=== PATIENT | female | born 1975 | race Caucasian/White ===

== ENCOUNTER 2017-06-22 16:34 | Emergency (ER) | payer OTHER ==
--- NOTE | 2017-06-22 16:54 | CPEKG ---
Heart Rate: 89 RR Interval: 674 P-R Interval: 124 QRSD Interval: 96 QT Interval: 396 QTC Interval: 482 P [place]: 64 QRS [place]: 78 T Wave [place]: -59 EKG Severity - NORMAL ECG - EKG Impression: SINUS RHYTHM Electronically Signed By: Savanah Coronado 22-Jun-2017 22:54:33
[2017-06-22 17:13] LABS: PLATELET COUNT 341 10^3/uL (150-400)
--- NOTE | 2017-06-22 17:38 | EDPHY ---
H & P Stated Complaint: back, shoulder pain starting Thursday, nausea last night Time Seen by Provider: 06/22/17 17:36 HPI/ROS: CHIEF COMPLAINT: "Right now I just feel a little lethargic;" pain under shoulder blade HISTORY OF PRESENT ILLNESS: The patient is a 41 y/o female complaining of pain under her left shoulder blade for the last 3 days, nausea, tingling in her left arm, and sensation of a rapid heart rate. She first noticed this focal pain under her scapula on Thursday. It is associated with tingling in her left arm into her left middle and ring fingers. No associated weakness. She has been treating it with stretching and Advil without any improvement over the weekend and took an old pill of codeine last night to help her sleep. This pain is less sharp currently , but still present. By Thursday night she felt nauseated, hot, and like her heart was racing. She notes her FitBit said her heart rate was in the 70s and says, "I felt every 5th beat like it was bigger." These symptoms recurred today. She denies vomiting, diarrhea, urinary symptoms, abdominal pain, weakness , neck injury, recent trauma, or recent illness. She notes she restarted her Vyvanse today after being off it for 2 months due to insurance changes. She did have a similar heart racing sensation when she first started this prescription originally. REVIEW OF SYSTEMS: A ten point review of systems was performed and is negative with the exception of the items mentioned in the HPI. Past medical history: 1. History of anorexia and bulimia 2. Depression and bipolar disorder 3. Rhabdomyolysis with 4-day hospitalization, possibly related to lamotrigine use and exercise 4. Asthma 5. Migraines 6. Necrotic sesamoid bone of foot, resolved Past surgical history: 1. 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 General Appearance: Alert. Vital signs reviewed. Eyes: Pupils equal and round, no conjunctival injection, no discharge. Anicteric. ENT, Mouth: Mucous membranes are moist, no oropharyngeal erythema or edema. Neck: No lymphadenopathy, supple. Respiratory: Lungs are clear to auscultation; no wheezes, rales, or rhonchi. Cardiovascular: Regular rate and rhythm; no murmur, rub, or gallop. Gastrointestinal: Abdomen is soft and nontender, no masses or organomegaly. Skin: Warm and dry, no rashes on exposed skin, normal color. Back: Nontender to palpation over the thoracolumbar spine. No CVAT. Mild tenderness along medial aspect of left scapula. Extremities: No lower extremity edema, no calf tenderness or swelling. Neurological: Alert and oriented. Moving all four extremities easily and equally. 5/5 bilateral upper extremity strength testing. Sensation intact to light touch over both upper extremities. Deep tendon reflexes 2+ in the biceps and triceps bilaterally. Psychiatric: Normal affect. - Personal History LMP (Females 10-55): Extended Cycle BCP/Inj Current Tetanus/Diphtheria Vaccine: Yes Current Tetanus Diphtheria and Acellular Pertussis (TDAP): Yes Tetanus Vaccine Date: < 10 years - Medical/Surgical History Hx Asthma: Yes Hx Chronic Respiratory Disease: No Hx Diabetes: No Hx Cardiac Disease: No Hx Renal Disease: No Hx Cirrhosis: No Hx Alcoholism: No Hx HIV/AIDS: No Hx Splenectomy or Spleen Trauma: No Other PMH: , rhabdo, foot bone necrosis, depression, asthma - Social History Smoking Status: Never smoked Constitutional: Initial Vital Signs Temperature (C) 36.9 C 06/22/17 16:42 Heart Rate 106 H 06/22/17 16:42 Respiratory Rate 20 06/22/17 16:42 Blood Pressure 125/89 H 06/22/17 16:42 O2 Sat (%) 98 06/22/17 16:42 O2 Delivery Mode Room Air Allergies/Adverse Reactions: lamotrigine Allergy (Severe, Verified 06/22/17 16:41) rhabdomyolysis Home Medications: Medication Instructions Recorded Albuterol 2 puffs IH PRN PRN 04/11/11 Fioricet-Cod [id number] Cap 1 - 2 tab PO Q4H PRN 08/15/13 Ibuprofen [Motrin (*)] 600 mg PO Q6 PRN #60 tab 08/19/13 Control 06/22/17 FLUoxetine 06/22/17 Ondansetron Odt [Zofran Odt 4 mg 4 mg PO Q4 PRN #10 tab 06/22/17 (RX)] VYVANSE 06/22/17 Wellbutrin 100mg SR (*) 06/22/17 Medical Decision Making ED Course/Re-evaluation: Plan for IV, labs, EKG, and symptom management. 4mg PO Zofran ordered. Occasional PVCs noted on monitor. The 12 lead EKG was interpreted by myself. See hard copy and/or "tracemaster" electronic copy for interpretation. Labs reviewed. Labs unremarkable. Reassessed patient and discussed findings. Upon sitting up her HR became mildly tachycardic. She is having occasional PVCs, which is likely what she is feeling at home. Have not seen a persistent tachyarrhythmia. I do not suspect an acute coronary syndrome. Her scapula pain with tingling in her fingers is consistent with a cervical radiculopathy. She has no focal deficits on exam here. Recommended IV fluids here, but she would like to go home and follow up with her PCP as an outpatient. She will be discharged with script for Zofran, recommendation to increase PO fluid intake and use ibuprofen for radiculopathy. She understands she needs to follow up with her PCP and cracker sprayer this week. Return precautions discussed. She is comfortable with this plan. - Data Points Laboratory Results: Laboratory Results 06/22/17 16:50 06/22/17 16:50 Medications Given: Discontinued Medications Ondansetron HCl (Zofran Odt) 4 mg PO EDNOW ONE Stop: 06/22/17 18:06 Last Admin: 06/22/17 18:17 Dose: 4 mg Departure - Departure Disposition: Home, Routine, Self-Care Clinical Impression: Nausea, PVCs (premature ventricular contractions), Cervical radiculopathy Condition: Good Instructions: Heart Palpitations (ED), Acute Nausea and Vomiting (ED), Cervical Radiculopathy (ED) Additional Instructions: 1. Increase fluid intake at home. 2. Use Zofran as prescribed as needed for nausea and vomiting. 3. Use 600mg ibuprofen every 6-8 hours for the next several days for your scapula/neck pain. 4. Follow up with your primary care provider and a cracker sprayer this week without failure. 5. Return to the ED for any worsening of condition. Referrals: Elis Real MD [Primary Care Provider] - As per Instructions Radha Pickett MD [Medical Doctor] - As per Instructions Prescriptions: Ondansetron Odt [Zofran Odt 4 mg (RX)] 4 mg PO Q4 PRN #10 tab PRN Reason: nausea Report Scribed for: Savanah Coronado Report Scribed by: Bibi Carter Date of Report: 06/22/17 Time of Report: 17:41 Physician Review and Approval Statement: 06/22/17 17:37 Portions of this note were transcribed by the medical technologist. I, Dr. Savanah Coronado, personally performed the history, physical exam, and medical decision- making; and confirmed the accuracy of the information in the transcribed note.
[2017-06-22] MEDS ORDERED: ONDANSETRON DISINTEGRATING 4 MG TAB PO ONE (18:05)
[2017-06-22] MEDS ORDERED: ONDANSETRON 4 MG/2 ML VIAL ONE (18:13)
[2017-06-22 18:34] VITALS: BP 110/67
== END 2017-06-22 18:32 | disposition home or self-care (01) ==
DX: R11.0 Nausea (principal); I49.3 Ventricular premature depolarization; M54.12 Radiculopathy, cervical region; J45.909 Unspecified asthma, uncomplicated
CPT/HCPCS: J2405